=== PATIENT | male | born 1975 | race Caucasian/White ===

== ENCOUNTER → 2018-05-31 | Outpatient (CLI) | payer OTHER ==
--- NOTE | 2018-05-31 12:06 | XR ---
EXAMINATION TYPE: XR pelvis AP view, XR ankle complete RT, XR tibia fibula RT, XR Hip Complete RT, XR femur RT, XR knee 4V RT DATE OF EXAM: 05/31/2018 CLINICAL HISTORY: M 21.371 and M 21.372 all per order. TECHNIQUE: A single AP view of the pelvis is obtained. Two views of the right hip, femur, and leg are obtained. 3 views of right ankle and knee are acquired. COMPARISON: Pelvic, right femur, and right leg x-ray from October 12, 2013. FINDINGS: There is no acute fracture/dislocation evident in the pelvis. The sacroiliac joints appear symmetric and unremarkable. There is persistent mild to moderate axial joint space loss in both hips with subc hondral cystic change. The overlying soft tissue appears unremarkable. Two views of right hip and femur show metallic sravan from open reduction internal fixation with 2 proxi mal fixating screws with subsequent healing of displaced fracture proximal diaphysis of right femur. 2 distal transverse fixating screws are noted. Alignment is satisfactory after healing. Heterotopic o ssification near the greater trochanter is noted. Images of right knee show lateral fixating screws distal femur and proximal tibial level as well as c entral screw distal femur likely from ACL repair. There is heterotopic ossification now identified. H eterotopic ossification includes intercondylar region and lateral aspect with interval healing of fib ular head fracture. Images of right tibia fibula show new lateral fixating plate through healed fracture mid to distal di aphysis of right fibula with satisfactory alignment. There is new intramedullary sravan with interval he aling through comminuted fracture of the mid tibia with satisfactory alignment. There are 2 proximal and 3 distal transverse fixating screws. Images of right ankle are felt within normal limits aside from more cranial surgical hardware. IMPRESSION: There is successful healing and alignment of open reduced internal fixated fractures of the tibia, fibula, and right femur as detailed above.
== END | disposition home or self-care (01) ==
LOC: RADXRMAIN 11:08
PROVIDERS: ATTEND Orthopaedic Surgery
DX: S82.491D Other fracture of shaft of right fibula, subsequent encounter for closed fracture with routine healing (principal); S72.491D Other fracture of lower end of right femur, subsequent encounter for closed fracture with routine healing; S82.291D Other fracture of shaft of right tibia, subsequent encounter for closed fracture with routine healing
CPT/HCPCS: 73502

== ENCOUNTER → 2018-06-27 | Outpatient (CLI) | payer OTHER ==
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
--- NOTE | 2018-06-27 11:30 | XR ---
EXAMINATION TYPE: XR Hip Complete LT DATE OF EXAM: 06/27/2018 CLINICAL HISTORY: Left hip pain and gait impairment. TECHNIQUE: AP and frogleg views of the left hip are obtained. COMPARISON: 10/12/2013. FINDINGS: There is no acute fracture/dislocation evident in the left hip. The joint space in the le ft hip is narrowed in the cephalomedial direction with acetabular roof sclerosis. Osseous bone aerati on at the lateral femoral head neck junction relates to a cam deformity. Heterotopic ossification is also seen lateral and superior to the greater trochanter. The overlying soft tissue appears unremark able. IMPRESSION: 1. There is no acute fracture or dislocation in the left hip. 2. Moderate left femoral acetabular arthropathy. 3. Small cam deformity that may predispose this patient to femoral acetabular impingement syndrome.
--- NOTE | 2018-06-27 11:31 | XR ---
EXAMINATION TYPE: XR cervical spine comp DATE OF EXAM: 06/27/2018 TECHNIQUE: Frontal, lateral, oblique, swimmers, and open mouth view of the cervical spine are obtaine d. HISTORY: M54.5 Low back pain M54.2 Cervical Pain M25.559 HI COMPARISON: None FINDINGS: The cervical spine is visualized in its entirety from C1 thru the top of T1 level, it is s atisfactory in alignment without evidence of acute fracture or dislocation. The pre-vertebral soft t issue appears within normal limits. There is mild uncovertebral hypertrophy on the right at C3-C4. Th e C1-C2 articulation is within normal limits on the open mouth view. The oblique images are within n ormal limits. IMPRESSION: No acute fracture or dislocation is seen in the cervical spine. Minimal degenerative dona nge on the right at C3-C4 without radiographic neural foraminal narrowing.
== END | disposition home or self-care (01) ==
LOC: RADXRMAIN 10:33
PROVIDERS: ATTEND Physical Medicine & Rehabilitation
DX: M99.73 Connective tissue and disc stenosis of intervertebral foramina of lumbar region (principal); M47.812 Spondylosis without myelopathy or radiculopathy, cervical region; M16.12 Unilateral primary osteoarthritis, left hip; M25.852 Other specified joint disorders, left hip; Z98.890 Other specified postprocedural states
CPT/HCPCS: 72050; 72100; 73502

== ENCOUNTER 2024-09-26 22:43 | Emergency (ER) | payer OTHER ==
--- NOTE | 2024-09-26 23:36 | XR ---
EXAM: XR Right Ribs, 2 Views CLINICAL HISTORY: ITS.REASON XR Reason: pain TECHNIQUE: Frontal and oblique views of the right ribs. COMPARISON: 08/18/2024 CXR FINDINGS: Lungs: No consolidation. Pleural space: No significant pleural effusion. No pneumothorax. Bones/joints: Acute nondisplaced fracture anterior right rib 8. No other fractures identified. Thoracolumbar fixation hardware extending from T10 through L2. IMPRESSION: Acute nondisplaced fracture anterior right rib 8.
--- NOTE | 2024-09-27 00:04 | ED ---
General Adult HPI - General Chief complaint: Recheck/Abnormal Lab/Rx Stated complaint: Rib pain Time Seen by Provider: 09/26/24 23:50 Source: patient, RN notes reviewed, old records reviewed Mode of arrival: ambulatory Limitations: no limitations - History of Present Illness Initial comments: 49-year-old male presents emergency department after a fall. States he fell getting out of the shower. Landed on the ground on his right rib and thinks he broke it. History of broken ribs. States this occurred earlier today. Did reveal to triage that he thinks he may have a UTI but states he does not want to be worked up for 1 and does not think he has 1. Denies any abdominal pain. Denies any chest pain other than over the right anterior ribs. Denies any shortness of breath. Is on chronic analgesia medications at home. Presents for further evaluation. Did not hit his head or lose consciousness. Is not on blood thinners. - Related Data Home Medications Medication Instructions Recorded Confirmed No Known Home Medications 10/12/13 10/12/13 Allergies Allergy/AdvReac Type Severity Reaction Status Date / Time No Known Allergies Allergy Verified 09/26/24 22:47 Review of Systems ROS Statement: Those systems with pertinent positive or pertinent negative responses have been documented in the HPI. Review of Systems: CONST: Denies fever EYES: Denies blurry vision ENT: Denies nasal congestion C/V: Denies Chest pain RESP: Denies shortness of breath GI: Denies abdominal pain : Denies dysuria SKIN: Denies rash. MSK: Endorses right sided rib pain NEURO: Denies headache ROS Other: All systems not noted in ROS Statement are negative. Past Medical History Additional Past Medical History / Comment(s): incomplete paraplegic History of Any Multi-Drug Resistant Organisms: None Reported Additional Past Surgical History / Comment(s): incomplete paraplegic Past Psychological History: No Psychological Hx Reported Smoking Status: Never smoker Past Alcohol Use History: None Reported Past Drug Use History: Marijuana General Exam - General Exam Comments Initial Comments: General: Appears in no acute distress. HEAD: Normal with no signs of head trauma. EYES: EOMI ENT: Hearing grossly intact RESPIRATORY: Clear breath sounds bilaterally. No wheezes, rales, or rhonchi. C/V: Regular rate and rhythm. S1 and S2 auscultated, peripheral pulses 2+ and intact throughout ABD: Abdomen is nondistended. EXT: Normal range of motion, no obvious deformity. Tenderness to palpation of the anterior right rib #8. No evidence of flail chest. SKIN: No rashes or lesions observed on exposed skin. NEURO: Alert and oriented x 4. Limitations: no limitations Course Vital Signs 09/26/24 09/26/24 09/27/24 22:44 23:00 00:18 Temperature 97.9 F 97.3 F L Pulse Rate 92 84 Respiratory 18 20 20 Rate Blood Pressure 131/85 139/58 O2 Sat by Pulse 95 98 Oximetry Medical Decision Making - Medical Decision Making Was pt. sent in by a medical professional or institution (, PA, ASSISTANT PROFESSOR OF RELIGION, urgent care, hospital, or correction...) When possible be specific @ -No Did you speak to anyone other than the patient for history (EMS, parent, family, police, friend...)? What history was obtained from this source @ -No Did you review nursing and triage notes (agree or disagree)? Why? @ -I reviewed and agree with nursing and triage notes Were old charts reviewed (outside hosp., previous admission, EMS record, old EKG, old radiological studies, urgent care reports/EKG's, correction records)? Report findings @ -No old charts were reviewed Differential Diagnosis (chest pain, altered mental status, abdominal pain women, abdominal pain men, vaginal bleeding, weakness, fever, dyspnea, syncope, headache, dizziness, GI bleed, back pain, seizure, CVA, palpatations, mental health, musculoskeletal)? @ -Rib fracture, rib contusion, pneumothorax. This list is not all inclusive. EKG interpreted by me (3pts min.). @ -None done X-rays interpreted by me (1pt min.). @ -X-ray reveals fracture of right rib #8 that is nondisplaced. No evidence of pneumothorax. CT interpreted by me (1pt min.). @ -None done U/S interpreted by me (1pt. min.). @ -None done What testing was considered but not performed or refused? (CT, X-rays, U/S, labs)? Why? @ -None What meds were considered but not given or refused? Why? @ -None Did you discuss the management of the patient with other professionals (professionals i.e. , PA, ASSISTANT PROFESSOR OF RELIGION, lab, RT, psych nurse, hospital social worker, hydraulic barker operator, teacher, combatant diver officer, shoe caser)? Give summary @ -No Was smoking cessation discussed for >3mins.? @ -No Was critical care preformed (if so, how long)? @ -No Were there social determinants of health that impacted care today? How? (Homelessness, low income, unemployed, alcoholism, drug addiction, transportation, low edu. Level, literacy, decrease access to med. care, shelter, rehab)? @ -No Was there de-escalation of care discussed even if they declined (Discuss DNR or withdrawal of care, Hospice)? DNR status @ -No What co-morbidities impacted this encounter? (DM, HTN, Smoking, COPD, CAD, Cancer, CVA, ARF, Chemo, Hep., AIDS, mental health diagnosis, sleep apnea, morbid obesity)? @ -None Was patient admitted / discharged? Hospital course, mention meds given and route, prescriptions, significant lab abnormalities, going to OR and other pertinent info. @ -Presents with right rib pain after fall. I evaluated the patient after he was placed in a hallway bed after x-ray was completed. Chest x-ray did reveal the right sided #8 anterior nondisplaced rib fracture. Vitals are within acceptable limits. I updated patient. He will be given an incentive spirometer. Declines analgesia medications he states he has plenty at home. Would like to be discharged home at this time. I believe this is reasonable. Strict return precautions discussed. Vitals are within acceptable limits.Patient discharged home with incentive spirometer. I instructed the patient to follow up with their PCP in the next 1-3 days. I explained that the patient should return to the emergency department if they experience any worsening symptoms. Strict return precautions were discussed with the patient. The patient expressed understanding of these instructions. I answered all questions that the patient had. The patient was discharged home in good condition with their prescriptions and follow up information. Undiagnosed new problem with uncertain prognosis? @ -No Drug Therapy requiring intensive monitoring for toxicity (Heparin, Nitro, Insulin, Cardizem)? @ -No Were any procedures done? @ -No Diagnosis/symptom? @ -Right nondisplaced anterior #8 rib fracture secondary to fall Acute, or Chronic, or Acute on Chronic? @ -Acute Uncomplicated (without systemic symptoms) or Complicated (systemic symptoms)? @ -Uncomplicated Side effects of treatment? @ -No Exacerbation, Progression, or Severe Exacerbation? @ -No Poses a threat to life or bodily function? How? (Chest pain, [place], [place], pneumonia, PE, COPD, DKA, ARF, appy, cholecystitis, CVA, Diverticulitis, Homicidal, Suicidal, threat to staff... and all critical care pts) @ -Unlikely at this time Disposition Clinical Impression: Right rib fracture Disposition: HOME SELF-CARE Condition: Good Instructions (If sedation given, give patient instructions): How to Use an Incentive Spirometer (ED), Rib Fracture (ED) Is patient prescribed a controlled substance at d/c from ED?: No Referrals: Nonstaff,Physician [Primary Care Provider] - 1-2 days Forms: Area PCPs Time of Disposition: 00:04
[2024-09-27 00:18] VITALS: RESP 20
[2024-09-27 00:23] VITALS: BP 139/58; PULSE 84; TEMP 97.3
== END 2024-09-27 00:18 | disposition home or self-care (01) ==
LOC: EC 22:43
DX: S22.31XA Fracture of one rib, right side, initial encounter for closed fracture (principal); W18.2XXA Fall in (into) shower or empty bathtub, initial encounter; Y93.E1 Activity, personal bathing and showering
CPT/HCPCS: 99283